=== PATIENT | male | born 1955 | race Two or more races ===

== ENCOUNTER → 2020-02-28 | Emergency (ER) | payer BC ==
[~2020-02-28] VITALS: Ht 167.6 cm; Wt 108.9 kg
[~2020-02-28] MED LIST: cloNIDine HCL 0.1 MG TAB PO ONE
[2020-02-28 22:30] LABS: Basophils # (auto) 0 10 ^3/uL (0-0.2); Basophils % (auto) 0.6 % (0.0-2.0); Eosinophils # (auto) 0.2 10 ^3/uL (0-0.8); Eosinophils % (auto) 2.9 % (0.0-7.0); Hematocrit 43.9 % (41.0-53.0); Hemoglobin 15.6 g/dL (13.5-17.5); Lymphocytes # (auto) 2.2 10 ^3/uL (0.4-5.4); Lymphocytes % (auto) 29.9 % (10.0-50.0); Mean Corpuscular Hgb Conc. 35.5 g/dL (32.0-36.0); Mean Corpuscular Volume 90.2 fL (80.0-100.0); Monocytes # (auto) 0.5 10 ^3/uL (0-1.3); Monocytes % (auto) 6.2 % (0.0-12.0); Neutrophils # (auto) 4.4 10 ^3/uL (1.6-8.6); Neutrophils % (auto) 60.4 % (37.0-80.0); Nucleated Red Blood Cells % 0.1 %; Platelet Count (auto) 187 10^3/uL (140-450); Red Blood Cells 4.87 10^6/uL (4.5-5.90); Red Cell Distribution Width 12.7 % (11.8-14.3); White Blood Cell 7.2 10^3/uL (4.4-10.8)
[2020-02-28 22:48] LABS: INR 1.01 (0.9-1.15); Partial Thromboplastin Time 27.6 sec (23.64-32.05)
[2020-02-28 22:55] LABS: Alanine Aminotransferase 35 U/L (16-61); Albumin 3.5 g/dL (3.4-5.0); Anion Gap 6 (5-15); Aspartate Aminotransferase 29 U/L (15-37); BUN/Creatinine Ratio 18.7; Blood Urea Nitrogen 20 mg/dL (7-18); Calcium 8.3 mg/dL (8.5-10.1); Carbon Dioxide 27 mmol/L (21-32); Chloride 107 mmol/L (98-107); GFR African American 89 mL/min; GFR Non-African American 74 mL/min; Glucose 98 mg/dL (74-106); Sodium 140 mmol/L (136-145)
[2020-02-28 22:57] LABS: Alkaline Phosphatase 69 U/L (45-117); Bilirubin, Total 0.6 mg/dL (0.2-1.0); Total Protein 6.9 g/dL (6.4-8.2)
[2020-02-29 00:41] LABS: Urine Bacteria NONE SEEN /hpf (None Seen); Urine Blood Negative /uL (Negative); Urine Specific Gravity 1.014 (1.001-1.035); Urine WBC None Seen /hpf (0 - 3)
[2020-02-29 04:11] VITALS: BP 141/58
[2020-02-29 05:21] LABS: Alcohol, Urine < 3.0 mg/dL (0-10); Amphetamine Screen, Urine NEGATIVE (NEGATIVE); Barbiturate Scree,Urine NEGATIVE (NEGATIVE); Benzodiazephine Screen, Urine NEGATIVE (NEGATIVE); Cannabinoid Screen, Urine NEGATIVE (NEGATIVE); Cocaine Screen, Urine NEGATIVE (NEGATIVE); Opiate Scree,Urine NEGATIVE (NEGATIVE); Phencyclidine Screen, Urine NEGATIVE (NEGATIVE)
== END | disposition home or self-care (01) ==
LOC: ER 21:42
DX: R41.82 Altered mental status, unspecified (principal); I10 Essential (primary) hypertension; R00.1 Bradycardia, unspecified
CPT/HCPCS: 36415; 70450; 71045; 72125; 80053; 80307; 81001; 82962; 83735; 83880; 84443; 84484; 85025; 85610; 85730; 93005

== ENCOUNTER 2020-09-15 18:53 | Emergency (ER) | payer BC, MEDICARE, OTHER ==
[~2020-09-15] VITALS: Ht 170.2 cm; Wt 113.4 kg
[2020-09-15 19:12] VITALS: BP 155/65
== END 2020-09-15 20:05 | disposition left against medical advice (07) ==
LOC: ER 18:53
DX: R06.02 Shortness of breath (principal); R19.7 Diarrhea, unspecified; Z53.21 Procedure and treatment not carried out due to patient leaving prior to being seen by health care provider

== ENCOUNTER 2020-09-16 08:40 | Emergency (ER) | payer MEDICARE ==
[~2020-09-16] VITALS: Ht 170.2 cm; Wt 113.4 kg
[2020-09-16 08:42] VITALS: BP 138/73
[2020-09-16] MEDS ORDERED: cefTRIAXone SOD 1,000 MG VL IM ONE (10:00)
[2020-09-16] MEDS ORDERED: DexAMETHasone SOD PHOS 10MG/1ML VIAL INJ IM ONE (10:00)
[2020-09-16] MEDS ORDERED: ACETAMINOPHEN 500 MG TAB PO ONE (10:00)
== END 2020-09-16 11:39 | disposition home or self-care (01) ==
LOC: ER 08:40
DX: U07.1 COVID-19 (principal); J12.89 Other viral pneumonia; I10 Essential (primary) hypertension; Z86.73 Personal history of transient ischemic attack (TIA), and cerebral infarction without residual deficits
CPT/HCPCS: 36415; 71045; 87426; 96372; 99284; J0696; J1100

== ENCOUNTER 2020-09-19 08:18 | Emergency (ER) | payer MEDICARE ==
[~2020-09-19] VITALS: Ht 170.2 cm; Wt 113.4 kg
[2020-09-19 08:57] VITALS: BP 148/78
[2020-09-19 10:13] LABS: Basophils # (auto) 0 10 ^3/uL (0-0.2); Basophils % (auto) 0.1 % (0.0-2.0); Eosinophils # (auto) 0 10 ^3/uL (0-0.8); Hematocrit 40.1 % (41.0-53.0); Hemoglobin 13.8 g/dL (13.5-17.5); Lymphocytes # (auto) 0.8 10 ^3/uL (0.4-5.4); Lymphocytes % (auto) 8.3 % (10.0-50.0); Mean Corpuscular Hemoglobin 31.3 pg (28.0-32.0); Mean Corpuscular Hgb Conc. 34.4 g/dL (32.0-36.0); Monocytes # (auto) 0.5 10 ^3/uL (0-1.3); Monocytes % (auto) 5.9 % (0.0-12.0); Neutrophils # (auto) 7.7 10 ^3/uL (1.6-8.6); Neutrophils % (auto) 85.7 % (37.0-80.0); Nucleated Red Blood Cells % 0.1 %; Platelet Count (auto) 146 10^3/uL (140-450); Red Blood Cells 4.41 10^6/uL (4.5-5.90); Red Cell Distribution Width 13.1 % (11.8-14.3)
[2020-09-19] MEDS ORDERED: DexAMETHasone SOD PHOS 10MG/1ML VIAL INJ IV ONE (10:15)
[2020-09-19] MEDS ORDERED: DOXYCYCLINE 100MG/250ML 250 ML IV ONE (10:15)
[2020-09-19] MEDS ORDERED: cefTRIAXone 1GM/50ML D5W 50 ML IV ONE (10:15)
[2020-09-19 10:34] LABS: Albumin 2.8 g/dL (3.4-5.0); Anion Gap 6 (5-15); Blood Urea Nitrogen 22 mg/dL (7-18); Calcium 8.5 mg/dL (8.5-10.1); Carbon Dioxide 25 mmol/L (21-32); Chloride 108 mmol/L (98-107); Glucose 152 mg/dL (74-106); Potassium 3.8 mmol/L (3.5-5.1); Sodium 139 mmol/L (136-145)
[2020-09-19 10:35] LABS: INR 0.97 (0.9-1.15); Partial Thromboplastin Time 29.9 sec (23.0-31.2)
[2020-09-19 10:39] LABS: Alanine Aminotransferase 89 U/L (16-61); Alkaline Phosphatase 69 U/L (45-117); Aspartate Aminotransferase 79 U/L (15-37); BUN/Creatinine Ratio 21.2; Bilirubin, Total 0.6 mg/dL (0.2-1.0); GFR African American 92 mL/min; GFR Non-African American 76 mL/min; Total Protein 6.9 g/dL (6.4-8.2)
[2020-09-20] MEDS ORDERED: DEXA6TAB PO (15:48)
[2020-09-20] MEDS ORDERED: [UNRECOGNIZED DRUG - CODE] PO (15:48)
[2020-09-20] MEDS ORDERED: LOVA10TA54 PO (15:48)
[2020-09-20] MEDS ORDERED: AMLO10TA13 PO (15:48)
[2020-09-20] MEDS ORDERED: IBUP600T27 PO (15:48)
[2020-09-20] MEDS ORDERED: DOXY100C2 PO (15:48)
[2020-09-20] MEDS ORDERED: INDO50CA82 PO (15:48)
[2020-09-20] MEDS ORDERED: GABA300C10 PO (15:48)
[2020-09-20] MEDS ORDERED: ZINC50TA39 PO (15:48)
[2020-09-20] MEDS ORDERED: MULT-928 PO (15:48)
[2020-09-20] MEDS ORDERED: ASPI325T4 PO (15:48)
[2020-09-20] MEDS ORDERED: TURM1TAB PO (15:48)
[2020-09-20] MEDS ORDERED: AZIT250T9 PO (15:48)
[2020-09-20] MEDS ORDERED: MET50T PO (15:48)
== END 2020-09-19 10:54 | disposition left against medical advice (07) ==
LOC: ER 08:18
DX: U07.1 COVID-19 (principal); J12.89 Other viral pneumonia; I10 Essential (primary) hypertension; Z86.73 Personal history of transient ischemic attack (TIA), and cerebral infarction without residual deficits
CPT/HCPCS: 36415; 71045; 80053; 83880; 84484; 85025; 85379; 85610; 85730; 99291

== ENCOUNTER 2020-09-20 11:44 | Inpatient (IN) | payer MEDICARE ==
[2020-09-19] MEDS: ACCU-CHEK COMFORT CURVE STRIP VI SCH (22:55)
[~2020-09-20] VITALS: Ht 170.2 cm; Wt 118.9 kg
[2020-09-20] MEDS ORDERED: methylPREDNISolone SOD SUCC 125 MG/2 ML VL IV ONE (12:00)
[2020-09-20] MEDS ORDERED: REMDESIVIR PER PHARMACY 0 ML IV SCH ×2 (13:15→15:45)
[2020-09-20] MEDS ORDERED: AZITHROMYCIN 500MG/ 250ML 250 ML IV ONE (13:15)
[2020-09-20] MEDS ORDERED: MORPHINE SULF INJ 2 MG/ML SYRINGE 1ML IV PRN ×3 (14:00→15:45)
[2020-09-20] MEDS ORDERED: NITROGLYCERIN 0.4 MG SL TAB SL PRN ×2 (14:00→15:45)
[2020-09-20 15:23] LABS: Basophils # (auto) 0 10 ^3/uL (0-0.2); Basophils % (auto) 0.1 % (0.0-2.0); Eosinophils # (auto) 0 10 ^3/uL (0-0.8); Hematocrit 39.9 % (41.0-53.0); Hemoglobin 14.1 g/dL (13.5-17.5); Lymphocytes # (auto) 0.6 10 ^3/uL (0.4-5.4); Lymphocytes % (auto) 5.8 % (10.0-50.0); Mean Corpuscular Hemoglobin 32.2 pg (28.0-32.0); Mean Corpuscular Hgb Conc. 35.4 g/dL (32.0-36.0); Mean Corpuscular Volume 91.1 fL (80.0-100.0); Monocytes # (auto) 0.3 10 ^3/uL (0-1.3); Monocytes % (auto) 2.9 % (0.0-12.0); Neutrophils % (auto) 91.2 % (37.0-80.0); Platelet Count (auto) 161 10^3/uL (140-450); Red Blood Cells 4.38 10^6/uL (4.5-5.90); Red Cell Distribution Width 12.9 % (11.8-14.3)
[2020-09-20 15:25] LABS: Albumin 2.8 g/dL (3.4-5.0); Anion Gap 6 (5-15); Blood Urea Nitrogen 22 mg/dL (7-18); Calcium 8.2 mg/dL (8.5-10.1); Carbon Dioxide 29 mmol/L (21-32); Chloride 103 mmol/L (98-107); Glucose 194 mg/dL (74-106); Potassium 4.2 mmol/L (3.5-5.1); Sodium 138 mmol/L (136-145)
[2020-09-20 15:33] LABS: Alanine Aminotransferase 75 U/L (16-61); Alkaline Phosphatase 69 U/L (45-117); Aspartate Aminotransferase 65 U/L (15-37); BUN/Creatinine Ratio 20.4; Bilirubin, Total 0.8 mg/dL (0.2-1.0); GFR African American 88 mL/min; GFR Non-African American 73 mL/min; Total Protein 7.2 g/dL (6.4-8.2)
[2020-09-20] MEDS ORDERED: LORazepam 0.5 MG TAB PO PRN (15:45)
[2020-09-20] MEDS ORDERED: ENOXAPARIN SOD 120 MG/0.8 ML SYRINGE SC ONE (15:45)
[2020-09-20] MEDS ORDERED: ACETAMINOPHEN 500 MG TAB PO PRN (15:45)
[2020-09-20] MEDS ORDERED: DEXTROSE (50%) 50ML SYRG IV PRN (15:45)
[2020-09-20] MEDS ORDERED: DOCUSATE SOD 100 MG CAP PO PRN (15:45)
[2020-09-20] MEDS ORDERED: ONDANSETRON HCL 4 MG/2 ML VIAL IV PRN (15:45)
[2020-09-20] MEDS ORDERED: LACTATED RINGER'S 1,000 ML IV ONE (15:45)
[2020-09-20] MEDS ORDERED: ALUM & MAG HYDROX-SIMETH LIQ(MAALOX) 30 ML PO PRN (15:45)
[2020-09-20] MEDS ORDERED: TURM1TAB PO (15:48)
[2020-09-20] MEDS ORDERED: [UNRECOGNIZED DRUG - CODE] PO (15:48)
[2020-09-20] MEDS ORDERED: INDO50CA82 PO (15:48)
[2020-09-20] MEDS ORDERED: MULT-928 PO (15:48)
[2020-09-20] MEDS ORDERED: AZIT250T9 PO (15:48)
[2020-09-20] MEDS ORDERED: GABA300C10 PO (15:48)
[2020-09-20] MEDS ORDERED: IBUP600T27 PO (15:48)
[2020-09-20] MEDS ORDERED: DEXA6TAB PO (15:48)
[2020-09-20] MEDS ORDERED: LOVA10TA54 PO (15:48)
[2020-09-20] MEDS ORDERED: DOXY100C2 PO (15:48)
[2020-09-20] MEDS ORDERED: ZINC50TA39 PO (15:48)
[2020-09-20] MEDS ORDERED: ASPI325T4 PO (15:48)
[2020-09-20] MEDS ORDERED: AMLO10TA13 PO (15:48)
[2020-09-20] MEDS ORDERED: MET50T PO (15:48)
[2020-09-20] MEDS ORDERED: REMDESIVIR 200 MG in NS 210ml LOADING DOSE ADULT IV ONE (17:00)
[2020-09-20] MEDS: BUDESONIDE (INHALATION) 180 MCG IH IN SCH (18:53)
[2020-09-20] MEDS: ACCU-CHEK COMFORT CURVE STRIP VI SCH (19:50)
[2020-09-20 21:42] LABS: Lactic Acid w/Reflex 2.9 mmol/L (0.4-2.0)
[2020-09-20 22:03] LABS: Calcium 7.9 mg/dL (8.5-10.1); Magnesium 1.9 mg/dL (1.6-2.6); Potassium 4.1 mmol/L (3.5-5.1)
[2020-09-20 22:10] LABS: Cholesterol 127 mg/dL (< 200); Triglycerides 81 mg/dL (< 150)
[2020-09-20] MEDS: ASCORBIC ACID 1,000 MG TAB PO SCH (22:10)
[2020-09-20] MEDS: CHOLECALCIFEROL (VITD3) 2,000 UNIT CAP PO SCH (22:10)
[2020-09-20] MEDS: ENOXAPARIN SOD 120 MG/0.8 ML SYRINGE SC SCH (22:11)
[2020-09-20] MEDS: ZINC SULFATE 220mg CAP or TAB PO SCH (22:11)
[2020-09-20] MEDS: FUROSEMIDE 20 MG/2 ML VIAL IV SCH (22:12)
[2020-09-20 22:13] LABS: Albumin 2.6 g/dL (3.4-5.0); BUN/Creatinine Ratio 18.8; Bilirubin, Total 0.8 mg/dL (0.2-1.0); CRP High Sensitivity 16.5 mg/dL (< 0.3); Total Protein 7.1 g/dL (6.4-8.2)
[2020-09-20 22:14] LABS: HDL Cholesterol 48 mg/dL (40-59); LDL Cholesterol 63 mg/dL (< 100)
[2020-09-20] MEDS: InsuLIN REG 1unit/0.01ml Soln (100units/ml) SC SCH (22:40)
[2020-09-20] MEDS: CEFEPIME 2 GM in SODIUM CHL 0.9% 50 ML IV SCH (23:11)
[2020-09-21] MEDS: ATORVASTATIN 20 MG TAB PO SCH ×2 (01:28→22:47)
[2020-09-21] MEDS: InsuLIN REG 1unit/0.01ml Soln (100units/ml) SC SCH ×5 (01:29→22:00)
[2020-09-21] MEDS: CEFEPIME 2 GM in SODIUM CHL 0.9% 50 ML IV SCH ×2 (03:00→10:18)
[2020-09-21 05:56] LABS: Basophils # (auto) 0 10 ^3/uL (0-0.2); Basophils % (auto) 0.1 % (0.0-2.0); Eosinophils # (auto) 0 10 ^3/uL (0-0.8); Hematocrit 39.3 % (41.0-53.0); Lymphocytes # (auto) 0.6 10 ^3/uL (0.4-5.4); Mean Corpuscular Hemoglobin 32.1 pg (28.0-32.0); Mean Corpuscular Hgb Conc. 35.5 g/dL (32.0-36.0); Mean Corpuscular Volume 90.4 fL (80.0-100.0); Monocytes # (auto) 0.6 10 ^3/uL (0-1.3); Monocytes % (auto) 5.2 % (0.0-12.0); Neutrophils # (auto) 11.2 10 ^3/uL (1.6-8.6); Neutrophils % (auto) 89.7 % (37.0-80.0); Nucleated Red Blood Cells % 0.1 %; Platelet Count (auto) 195 10^3/uL (140-450); Red Blood Cells 4.35 10^6/uL (4.5-5.90); Red Cell Distribution Width 12.9 % (11.8-14.3); White Blood Cell 12.5 10^3/uL (4.4-10.8)
[2020-09-21] MEDS: ACCU-CHEK COMFORT CURVE STRIP VI SCH ×4 (06:29→22:00)
[2020-09-21] MEDS ORDERED: METOPROLOL SUCCINATE XL 50 MG TAB PO ONE (06:45)
[2020-09-21 06:56] LABS: Albumin 2.6 g/dL (3.4-5.0); BUN/Creatinine Ratio 23.7; Calcium 8.2 mg/dL (8.5-10.1); Potassium 3.8 mmol/L (3.5-5.1)
[2020-09-21 07:13] LABS: Bilirubin, Total 0.7 mg/dL (0.2-1.0); Total Protein 6.7 g/dL (6.4-8.2)
[2020-09-21] MEDS: ENOXAPARIN SOD 120 MG/0.8 ML SYRINGE SC SCH ×2 (07:32→15:35)
[2020-09-21] MEDS: FUROSEMIDE 20 MG/2 ML VIAL IV SCH ×2 (08:06→18:17)
[2020-09-21] MEDS: ASPirin 81 mg TAB PO SCH (08:49)
[2020-09-21] MEDS: ASCORBIC ACID 1,000 MG TAB PO SCH (08:49)
[2020-09-21] MEDS: CHOLECALCIFEROL (VITD3) 2,000 UNIT CAP PO SCH (08:49)
[2020-09-21] MEDS: ZINC SULFATE 220mg CAP or TAB PO SCH (08:49)
[2020-09-21] MEDS: METOPROLOL SUCCINATE XL 50 MG TAB PO SCH (08:52)
[2020-09-21] MEDS: DexAMETHasone SOD PHOS 10MG/1ML VIAL INJ IV SCH (08:53)
[2020-09-21] MEDS: BUDESONIDE (INHALATION) 180 MCG IH IN SCH ×2 (10:05→21:10)
[2020-09-21] MEDS: GABAPENTIN 300 MG CAP PO SCH ×2 (13:57→22:47)
[2020-09-21] MEDS: REMDESIVIR 100 MG in SODIUM CHL 0.9% 250 ML IV SCH (15:50)
[2020-09-21] MEDS ORDERED: cefTRIAXone 1GM/50ML D5W 50 ML IV ONE (20:00)
[2020-09-21 21:45] VITALS: BP 171/84
[2020-09-21] MEDS: HYDROcodone-ACET 5/325MG TAB PO PRN (22:47)
[2020-09-21] MEDS: DOXYCYCLINE 100MG/250ML 250 ML IV SCH (23:20)
[2020-09-21] MEDS: hydrALAZINE HCL 20 MG/ML VL IV PRN (23:21)
[2020-09-22] VITALS: BP 171/84
[2020-09-22 02:19] VITALS: BP 145/74
[2020-09-22] MEDS: ENOXAPARIN SOD 120 MG/0.8 ML SYRINGE SC SCH (04:26)
[2020-09-22] MEDS: GABAPENTIN 300 MG CAP PO SCH ×3 (05:56→22:17)
[2020-09-22] MEDS ORDERED: GABA300C10 PO (05:56)
[2020-09-22] MEDS: ACCU-CHEK COMFORT CURVE STRIP VI SCH ×4 (06:00→22:18)
[2020-09-22] MEDS: FUROSEMIDE 20 MG/2 ML VIAL IV SCH ×2 (06:01→18:00)
[2020-09-22] MEDS: InsuLIN REG 1unit/0.01ml Soln (100units/ml) SC SCH ×4 (06:23→22:19)
[2020-09-22 08:00] VITALS: BP 141/77
[2020-09-22] MEDS: cefTRIAXone 1GM/50ML D5W 50 ML IV SCH (09:00)
[2020-09-22] MEDS: CHOLECALCIFEROL (VITD3) 2,000 UNIT CAP PO SCH (09:00)
[2020-09-22] MEDS: METOPROLOL SUCCINATE XL 50 MG TAB PO SCH (09:00)
[2020-09-22] MEDS: ASPirin 81 mg TAB PO SCH (09:00)
[2020-09-22] MEDS: ASCORBIC ACID 1,000 MG TAB PO SCH (09:00)
[2020-09-22] MEDS: ZINC SULFATE 220mg CAP or TAB PO SCH (09:00)
[2020-09-22] MEDS: DexAMETHasone SOD PHOS 10MG/1ML VIAL INJ IV SCH (09:00)
[2020-09-22] MEDS: REMDESIVIR 100 MG in SODIUM CHL 0.9% 250 ML IV SCH (15:29)
[2020-09-22 16:00] VITALS: BP 151/75
[2020-09-22] MEDS: DOXYCYCLINE 100MG/250ML 250 ML IV SCH ×2 (17:50→22:16)
[2020-09-22] MEDS: BUDESONIDE (INHALATION) 180 MCG IH IN SCH ×2 (19:50→21:39)
[2020-09-22] MEDS: HYDROcodone-ACET 5/325MG TAB PO PRN (21:19)
[2020-09-22] MEDS: ATORVASTATIN 20 MG TAB PO SCH (22:17)
[2020-09-22] MEDS: ENOXAPARIN SOD 40 MG/0.4 ML SYRINGE SC SCH (22:18)
[2020-09-22] MEDS: ALBUTEROL SULF HFA 90MCG INH 200DOSE IN PRN (22:51)
[2020-09-23] VITALS: BP 150/81
[2020-09-23] MEDS: HYDROcodone-ACET 5/325MG TAB PO PRN ×2 (02:57→21:42)
[2020-09-23] MEDS: FUROSEMIDE 20 MG/2 ML VIAL IV SCH (06:14)
[2020-09-23] MEDS: GABAPENTIN 300 MG CAP PO SCH ×3 (06:14→22:32)
[2020-09-23] MEDS: LEVOTHYROXINE SODIUM 25 MCG TAB PO SCH (06:22)
[2020-09-23] MEDS: ACCU-CHEK COMFORT CURVE STRIP VI SCH ×4 (06:22→22:00)
[2020-09-23] MEDS: InsuLIN REG 1unit/0.01ml Soln (100units/ml) SC SCH ×4 (06:23→22:29)
[2020-09-23 08:00] VITALS: BP 149/79
[2020-09-23 09:20] LABS: Albumin 2.6 g/dL (3.4-5.0); BUN/Creatinine Ratio 33.7; Bilirubin, Total 0.8 mg/dL (0.2-1.0); Calcium 8.2 mg/dL (8.5-10.1); Total Protein 7.2 g/dL (6.4-8.2)
[2020-09-23] MEDS: BUDESONIDE (INHALATION) 180 MCG IH IN SCH ×2 (10:00→22:00)
[2020-09-23] MEDS: cefTRIAXone 1GM/50ML D5W 50 ML IV SCH (10:04)
[2020-09-23] MEDS: ZINC SULFATE 220mg CAP or TAB PO SCH (10:07)
[2020-09-23] MEDS: ASCORBIC ACID 1,000 MG TAB PO SCH (10:07)
[2020-09-23] MEDS: ENOXAPARIN SOD 40 MG/0.4 ML SYRINGE SC SCH ×2 (10:08→22:31)
[2020-09-23] MEDS: DexAMETHasone SOD PHOS 10MG/1ML VIAL INJ IV SCH (10:08)
[2020-09-23] MEDS: METOPROLOL SUCCINATE XL 50 MG TAB PO SCH (10:09)
[2020-09-23] MEDS: DOXYCYCLINE 100MG/250ML 250 ML IV SCH ×2 (10:10→22:32)
[2020-09-23] MEDS: CHOLECALCIFEROL (VITD3) 2,000 UNIT CAP PO SCH (10:10)
[2020-09-23] MEDS: ASPirin 81 mg TAB PO SCH (10:10)
[2020-09-23 14:40] VITALS: BP 147/59
[2020-09-23] MEDS: REMDESIVIR 100 MG in SODIUM CHL 0.9% 250 ML IV SCH (14:40)
[2020-09-23 14:45] VITALS: BP 155/77
[2020-09-23 16:37] VITALS: BP 141/82
[2020-09-23] MEDS: ATORVASTATIN 20 MG TAB PO SCH (22:32)
[2020-09-24] VITALS (7 sets, daily range): BP systolic 136–175; BP diastolic 72–87
[2020-09-24] MEDS: hydrALAZINE HCL 20 MG/ML VL IV PRN ×2 (00:05→17:54)
[2020-09-24] MEDS: LEVOTHYROXINE SODIUM 25 MCG TAB PO SCH (06:32)
[2020-09-24] MEDS: GABAPENTIN 300 MG CAP PO SCH ×3 (06:32→21:55)
[2020-09-24] MEDS: InsuLIN REG 1unit/0.01ml Soln (100units/ml) SC SCH ×4 (06:33→22:01)
[2020-09-24] MEDS: BUDESONIDE (INHALATION) 180 MCG IH IN SCH ×2 (07:42→22:00)
[2020-09-24 08:36] LABS: Basophils # (auto) 0 10 ^3/uL (0-0.2); Basophils % (auto) 0.1 % (0.0-2.0); Eosinophils # (auto) 0 10 ^3/uL (0-0.8); Eosinophils % (auto) 0.2 % (0.0-7.0); Hematocrit 41.2 % (41.0-53.0); Hemoglobin 14.5 g/dL (13.5-17.5); Lymphocytes # (auto) 1.2 10 ^3/uL (0.4-5.4); Lymphocytes % (auto) 11.8 % (10.0-50.0); Mean Corpuscular Hemoglobin 31.8 pg (28.0-32.0); Mean Corpuscular Hgb Conc. 35.2 g/dL (32.0-36.0); Mean Corpuscular Volume 90.1 fL (80.0-100.0); Monocytes # (auto) 0.8 10 ^3/uL (0-1.3); Monocytes % (auto) 8.1 % (0.0-12.0); Neutrophils # (auto) 7.9 10 ^3/uL (1.6-8.6); Neutrophils % (auto) 79.8 % (37.0-80.0); Nucleated Red Blood Cells % 0.1 %; Platelet Count (auto) 313 10^3/uL (140-450); Red Blood Cells 4.57 10^6/uL (4.5-5.90); Red Cell Distribution Width 12.5 % (11.8-14.3); White Blood Cell 9.9 10^3/uL (4.4-10.8)
[2020-09-24 08:50] LABS: Albumin 2.5 g/dL (3.4-5.0); BUN/Creatinine Ratio 24.4; Bilirubin, Total 0.8 mg/dL (0.2-1.0); Calcium 8.6 mg/dL (8.5-10.1); Total Protein 6.9 g/dL (6.4-8.2)
[2020-09-24] MEDS: cefTRIAXone 1GM/50ML D5W 50 ML IV SCH (09:34)
[2020-09-24] MEDS: ENOXAPARIN SOD 40 MG/0.4 ML SYRINGE SC SCH ×2 (09:35→21:55)
[2020-09-24] MEDS: ASPirin 81 mg TAB PO SCH (09:35)
[2020-09-24] MEDS: DexAMETHasone SOD PHOS 10MG/1ML VIAL INJ IV SCH (09:35)
[2020-09-24] MEDS: ZINC SULFATE 220mg CAP or TAB PO SCH (09:35)
[2020-09-24] MEDS: DOXYCYCLINE 100MG/250ML 250 ML IV SCH ×2 (09:36→21:54)
[2020-09-24] MEDS: ASCORBIC ACID 1,000 MG TAB PO SCH (09:36)
[2020-09-24] MEDS: CHOLECALCIFEROL (VITD3) 2,000 UNIT CAP PO SCH (09:37)
[2020-09-24] MEDS: METOPROLOL SUCCINATE XL 50 MG TAB PO SCH (09:38)
[2020-09-24] MEDS: FUROSEMIDE 20 MG/2 ML VIAL IV SCH (09:38)
[2020-09-24] MEDS: ACCU-CHEK COMFORT CURVE STRIP VI SCH ×3 (11:52→21:55)
[2020-09-24] MEDS: REMDESIVIR 100 MG in SODIUM CHL 0.9% 250 ML IV SCH (15:51)
[2020-09-24] MEDS: ATORVASTATIN 20 MG TAB PO SCH (21:55)
[2020-09-25] VITALS: BP 165/81
[2020-09-25] MEDS: hydrALAZINE HCL 20 MG/ML VL IV PRN (00:28)
[2020-09-25] MEDS: HYDROcodone-ACET 5/325MG TAB PO PRN ×2 (00:31→22:15)
[2020-09-25] MEDS: ALBUTEROL SULF HFA 90MCG INH 200DOSE IN PRN ×3 (00:47→21:39)
[2020-09-25 01:28] VITALS: BP 148/78
[2020-09-25] MEDS: ACCU-CHEK COMFORT CURVE STRIP VI SCH ×4 (05:40→22:13)
[2020-09-25] MEDS: InsuLIN REG 1unit/0.01ml Soln (100units/ml) SC SCH ×4 (05:51→22:14)
[2020-09-25] MEDS: GABAPENTIN 300 MG CAP PO SCH ×3 (05:52→22:12)
[2020-09-25] MEDS: LEVOTHYROXINE SODIUM 25 MCG TAB PO SCH (05:52)
[2020-09-25 08:10] VITALS: BP 144/73
[2020-09-25] MEDS: BUDESONIDE (INHALATION) 180 MCG IH IN SCH ×2 (09:08→21:39)
[2020-09-25] MEDS: CHOLECALCIFEROL (VITD3) 2,000 UNIT CAP PO SCH (10:00)
[2020-09-25] MEDS: ASPirin 81 mg TAB PO SCH (10:08)
[2020-09-25] MEDS: ZINC SULFATE 220mg CAP or TAB PO SCH (10:08)
[2020-09-25] MEDS: ASCORBIC ACID 1,000 MG TAB PO SCH (10:08)
[2020-09-25] MEDS: cefTRIAXone 1GM/50ML D5W 50 ML IV SCH (10:08)
[2020-09-25] MEDS: FUROSEMIDE 20 MG/2 ML VIAL IV SCH (10:09)
[2020-09-25] MEDS: METOPROLOL SUCCINATE XL 50 MG TAB PO SCH (10:09)
[2020-09-25] MEDS: ENOXAPARIN SOD 40 MG/0.4 ML SYRINGE SC SCH ×2 (10:10→22:13)
[2020-09-25] MEDS: DexAMETHasone SOD PHOS 10MG/1ML VIAL INJ IV SCH (10:10)
[2020-09-25] MEDS: DOXYCYCLINE 100MG/250ML 250 ML IV SCH ×2 (10:10→22:34)
[2020-09-25 16:14] VITALS: BP 144/72
[2020-09-25] MEDS: ATORVASTATIN 20 MG TAB PO SCH (22:11)
[2020-09-25] MEDS: METOPROLOL TARTRATE 50 MG TAB PO SCH (22:12)
[2020-09-26] VITALS: BP 162/77
[2020-09-26] MEDS: hydrALAZINE HCL 20 MG/ML VL IV PRN (00:06)
[2020-09-26 01:00] VITALS: BP 125/74
[2020-09-26] MEDS: BUDESONIDE (INHALATION) 180 MCG IH IN SCH (06:19)
[2020-09-26] MEDS: ALBUTEROL SULF HFA 90MCG INH 200DOSE IN PRN (06:19)
[2020-09-26] MEDS: GABAPENTIN 300 MG CAP PO SCH ×2 (06:40→14:41)
[2020-09-26] MEDS: LEVOTHYROXINE SODIUM 25 MCG TAB PO SCH (06:40)
[2020-09-26] MEDS: InsuLIN REG 1unit/0.01ml Soln (100units/ml) SC SCH ×3 (06:41→17:00)
[2020-09-26] MEDS: ACCU-CHEK COMFORT CURVE STRIP VI SCH ×3 (06:43→17:00)
[2020-09-26 08:00] VITALS: BP 146/77
[2020-09-26] MEDS: ENOXAPARIN SOD 40 MG/0.4 ML SYRINGE SC SCH (10:00)
[2020-09-26] MEDS: CHOLECALCIFEROL (VITD3) 2,000 UNIT CAP PO SCH (10:00)
[2020-09-26] MEDS ORDERED: amLODIPine BESYLATE 5 MG TAB PO SCH (10:00)
[2020-09-26] MEDS: ASPirin 81 mg TAB PO SCH (10:06)
[2020-09-26] MEDS: ZINC SULFATE 220mg CAP or TAB PO SCH (10:07)
[2020-09-26] MEDS: DexAMETHasone SOD PHOS 10MG/1ML VIAL INJ IV SCH (10:07)
[2020-09-26] MEDS: ASCORBIC ACID 1,000 MG TAB PO SCH (10:07)
[2020-09-26] MEDS: cefTRIAXone 1GM/50ML D5W 50 ML IV SCH (10:08)
[2020-09-26] MEDS: FUROSEMIDE 20 MG/2 ML VIAL IV SCH (10:09)
[2020-09-26] MEDS: METOPROLOL TARTRATE 50 MG TAB PO SCH (10:10)
[2020-09-26] MEDS: DOXYCYCLINE 100MG/250ML 250 ML IV SCH (10:11)
[2020-09-26 16:00] VITALS: BP 138/77
[2020-09-26 17:41] VITALS: BP 138/77
== END 2020-09-26 18:00 | disposition home or self-care (01) | DRG 177 ==
LOC: ER 11:44 → OVERFLOW 11:45 → TELE-WESTW 09-21 21:05
PROVIDERS: ADMIT Hospitalist; ATTEND Internal Medicine
PROC: XW033E5 Introduction of Remdesivir Anti-infective into Peripheral Vein, Percutaneous Approach, New Technology Group 5 (ICD-10-PCS; principal; 2020-09-21)
DX: U07.1 COVID-19 (principal); J96.01 Acute respiratory failure with hypoxia; J12.82 Pneumonia due to coronavirus disease 2019; E43 Unspecified severe protein-calorie malnutrition; Z68.41 Body mass index [BMI] 40.0-44.9, adult; D68.59 Other primary thrombophilia; E66.01 Morbid (severe) obesity due to excess calories; I10 Essential (primary) hypertension; M19.90 Unspecified osteoarthritis, unspecified site; D72.829 Elevated white blood cell count, unspecified; Z83.3 Family history of diabetes mellitus; Z86.73 Personal history of transient ischemic attack (TIA), and cerebral infarction without residual deficits
CPT/HCPCS: 36415; 36600; 71045; 76705; 80053; 80061; 82306; 82728; 82805; 82962; 83036; 83605; 83615; 83735; 83880; 84439; 84443; 84484; 85025; 85379; 85610; 85730; 86141; 87040; 93005; 94640; 99291; G0378; J0696; J1100; J1815; J2405; J3490

== ENCOUNTER 2021-04-08 12:55 | Emergency (ER) | payer MEDICARE ==
[~2021-04-08] VITALS: Ht 170.2 cm; Wt 122.5 kg
[~2021-04-08 12:55] MED LIST changes: +AMLO-496 PO; +ASPI325T4 PO; +DEXA6TAB PO; +DOXY100C2 PO; +GABA300C10 PO; +IBUP600T27 PO; +INDO50CA82 PO; +LOVA10TA54 PO; +MET50T PO; +MULT-928 PO; +TURM1TAB PO; +ZINC50TA39 PO; +[UNRECOGNIZED DRUG - CODE] PO; -cloNIDine HCL 0.1 MG TAB PO ONE
[2021-04-08] MEDS ORDERED: KETOROLAC TROMETH 60MG/2ML VIAL IM ONE (13:45)
[2021-04-08 13:49] VITALS: BP 136/61
== END 2021-04-08 14:09 | disposition home or self-care (01) ==
LOC: ER 12:55
DX: M17.11 Unilateral primary osteoarthritis, right knee (principal); I10 Essential (primary) hypertension; Z79.84 Long term (current) use of oral hypoglycemic drugs; Z79.82 Long term (current) use of aspirin; Z79.899 Other long term (current) drug therapy; Z86.73 Personal history of transient ischemic attack (TIA), and cerebral infarction without residual deficits
CPT/HCPCS: 73562; 96372; 99283; J1885